=== PATIENT | female | born 1945 | race Caucasian/White ===

== ENCOUNTER → 2016-04-05 | Outpatient (REF) | payer MEDICARE, OTHER | LOC: M SMT 13:09 | PROVIDERS: ATTEND Nurse Practitioner Family | DX: N39.41 Urge incontinence (principal) | CPT/HCPCS: 51798; 81001; 87086; G0463 ==

== ENCOUNTER → 2016-09-01 | Outpatient (CLI) | payer MEDICARE, OTHER ==
[~2016-09-01] MED LIST: LOMO2.5T PO; LOSA100T36 PO; MAGN1TAB25 PO; MULT1CHW39 PO; OMEP40CA2 PO; OXYB10TA PO; SIMV20TA2 PO; SYNT25TA PO; VITA-5 PO; VITA500C14 PO
[2016-09-01 08:20] LABS: ANION GAP 9 MEQ/L (8-16); BLOOD UREA NITROGEN 20 MG/DL (7-18); CARBON DIOXIDE LEVEL 27 MEQ/L (21-32); CHLORIDE LEVEL 109 MEQ/L (98-107); CREATININE FOR GFR 0.96 MG/DL (0.55-1.02); GLOMERULAR FILTRATION RATE > 60.0 (>39); GLUCOSE, FASTING 104 MG/DL (83-110); POTASSIUM SERUM 4.6 MEQ/L (3.5-5.1); SODIUM LEVEL 145 MEQ/L (136-145)
--- NOTE | 2016-09-01 13:02 | ECGEPIP ---
Stationary ECG Study [facility] Test Date: 2016-09-01 Pat Name: ANUM HARRIS Department: Room: - Gender: F Battery Inspector: RF : 1945 Requested By: KASSANDRA Salamanca Order Number: [id number] Reading MD: Rubio Guillen Measurements Intervals [place] Rate: 71 P: 60 HI: 175 QRS: 16 QRSD: 95 T: 49 QT: 382 QTc: 416 Interpretive Statements SINUS RHYTHM Comparison tracing not on file Electronically Signed On 09-01-2016 13:02:44 EDT by Rubio Guillen
== END ==
LOC: M LAB 07:16
PROVIDERS: ATTEND Ophthalmology
DX: H25.12 Age-related nuclear cataract, left eye (principal)

== ENCOUNTER → 2016-09-15 | Day surgery (SDC) | payer OTHER, MEDICARE ==
--- NOTE | 2016-09-07 11:31 | CR ---
DATE OF CONSULTATION: 09/06/[address] Byrd: Thank you for asking me to see Ms. Lori Adamson in consultation prior to her cataract extractions. Ms. Adamson is, as you know, a 71-year-old female with past medical history of hypertension, hyperlipidemia, hyperglycemia, who reports that she has been in her usual state of health. The patient reports a decline in her vision. She is looking forward to having her cataracts extracted. The patient reports injury to her left great toe after dropping a picnic table it. 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 Tavera, but has not pursued treatment. Requesting evaluation to me. The patient has chronic headaches. She reports they are better than they had been and is pleased. The patient's weight is down. She believes this is related to portion control and is eating better. The patient has chronic diarrhea. Dr. Renee Gilbert had asked to lower her Lomotil to once a day. She reports that this was intolerable and she is back at twice a day. The patient has a osteoarthritis, degenerative joint disease. Sees s chiropractor every 3-4 weeks. Uses a Lidoderm patch daily. The patient has cognitive impairment but is still able to function. The patient had complained about oral burning and a bad taste in her mouth. She ultimately was placed on omeprazole with significant improvement in her symptoms with still variability in what tastes good to her. The patient otherwise denies any fevers or chills, chest pain or shortness of breath, nausea, vomiting, change in bowels. Patient reports chiropractor feels that she has right hip bursitis. She is requesting for the further eval treatment. The patient continues to have lower extremity dermatitis. She denies any pain or itching with it. It is more cosmetic. It is improved with the use of topical clobetasol but recurred and she has been referred into dermatology and will see them in September. PAST MEDICAL HISTORY: 1. Chronic daily headaches felt to be related to medication overuse by [facility] 2011. 2. Hypertension. 3. Hyperlipidemia. 4. Hyperglycemia. 5. Hematuria with negative workup 1998. 6. Total abdominal hysterectomy, bilateral salpingo-oophorectomy (SIM-BSO). 7. Cholecystectomy. 8. Osteoarthritis, degenerative joint disease status post total knee arthroplasty (TKA). 9. Depression. 10. Left shoulder impingement syndrome status post surgery. 11. Bladder suspension 06/04. 12. G3, P3. 13. 07/17/2009 right foot surgery. 14. Gout. 15. Possible myeloproliferative disorder. 16. Left shoulder rotator cuff tear 2011. 17. Heel spur status post surgical intervention. 18. Mild cognitive impairment 2011. 19. Hypothyroidism. 20. Left thumb arthroplasty 2014. 21. Colonoscopy October 2010. 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 She is a former smoker but quit in 1985. She occasionally consumes alcohol. FAMILY HISTORY: She is adopted. Her daughter does have diabetes. DRUG ALLERGIES: CODEINE. DRUG INTOLERANCES: PROPRANOLOL, GABAPENTIN, IMITREX, RELPAX, ULTRACET. PHYSICAL EXAMINATION: Obese female in no acute distress. Vital signs: Weight 190 with a BMI of 35, O2 sat at rest is 98%, blood pressure 146/74, recheck 140/80. Her heart rate of 67. HEENT: Head is normocephalic. Neck is supple. Pupils equal, reactive to light. Extraocular movements are intact. She wears eyeglasses. Conjunctivae are not injected. Sclerae anicteric. Vision grossly normal. No cervical lymphadenopathy. Posterior pharynx without inflammation. Neck is supple. No thyromegaly, jugular venous distention (JVD) or carotid bruits. Respiratory: Clear to auscultation, resonant to percussion. Cardiovascular: Regular rate rhythm. No murmur, rub or gallop. Abdomen: Obese, soft, nontender. Extremities: Trace pretibial edema with what appears to be a flat erythematous macular, slightly scaling rash pretibial. The patient does have a well-healed right TKA scar. Her pulses are palpable. Sensation is normal. Dermatologic she has multiple moles. Her last great toenail is dark in color. LABORATORY DATA 09/01/2016. She has a normal med profile. From 06/20/2016 she has a normal CBC. From 06/17/2016 she has a normal thyroid and vitamin D and lipid. Patient's EKG done at [facility] 09/01/2016 showed normal sinus rhythm rate of 71, axis of 16 degrees normal GA, QRS, QTC interval. No atrial or ventricular hypertrophy. No pathologic Q-waves. Nonspecific ST-T wave changes. IMPRESSION: Ms. Lori Adamson, 71-year-old female with multiple cardiovascular risk factors including age, hypertension, hyperlipidemia, hyperglycemia, has no signs or symptoms indicative of cardiovascular ischemia and is felt to be at low risk for cardiovascular complications from the proposed surgical intervention which can be further minimized by the followin. Hypertension. Continue losartan perioperatively at bedtime prior to surgery. 2. Hyperlipidemia. Continue simvastatin perioperatively including at bedtime prior to surgery. 3. Hyperglycemia, Dietary advice was given. 4. Chronic daily headaches. Hold Excedrin migraine 1 week prior to surgery. Use Tylenol as needed with caffeinated beverage. 5. Gastroesophageal reflux disease. Continue omeprazole including morning of surgery. 6. Hypothyroidism. Continue Levoxyl including morning of surgery. 7. Irritable bowel syndrome with diarrhea. Continue sparing use of Lomotil including morning of surgery. 8. Nocturia. Continue oxybutynin at bedtime prior to surgery. 9. Chronic daily headaches. Tylenol only before surgical intervention. 10. Gout. No recurrence since being on losartan. 11. Dermatitis lower extremities. Await input from dermatology 12. Left great toe trauma. I have asked her to seek consultation with Dr. Tavrea regarding the subungual hematoma. 13. Osteoarthritis, degenerative joint disease, chronic, stable. Follows with chiropractor for possible right hip bursitis and I will refer her over to orthopedics. No non-steroidal anti-inflammatory drugs (NSAID) perioperatively. Thank you very much for this consultation. Please call with any questions or concerns. ADRIA
[~2016-09-15] VITALS: Ht 157.5 cm; Wt 86.2 kg
[~2016-09-15] MED LIST changes: +ACETAMINOPHEN TAB 650MG DOSE (2X325MG) As Ordered ONE; +ACETAMINOPHEN TAB 650MG DOSE (2X325MG) PO PRN; +ACETYLCHOLINE OPHTH SOLN 1% 2ML (MIOCHOL-E) As Ordered ONE; +BALANCED SALT IRRIGATION SOL 500ML GLASS BOTTLE (FOR OR EYE COMPOUND) As Ordered ONE; +BALANCED SALT IRRIGATION SOLUTION 500ML BAG (FOR OR EYE MACHINE) As Ordered ONE; +CEFUROXIME 1MG/0.1ML INTRACAMERAL INJ As Ordered ONE; +D5W/0.2% SODIUM CHLORIDE 250 ML IV ONE; +DUOVISC (0.50ML VISCOAT/0.55ML PROVISC) OPHTH KIT As Ordered ONE; +LIDOCAINE 0.75%/EPINEPHRINE 0.025% IN BSS 1ML SYR INTRACAMERAL (OR ONLY) As Ordered ONE; +LIDOCAINE 4% INJ 5 ML AMP As Ordered ONE; +LR 1,000 ML IV SCH; +MIDAZOLAM INJ 2 MG/2 ML VIAL (J2250) As Ordered ONE; +OFLOXACIN 0.3 % (OCUFLOX) OPTH SOL 5ML OS ONE; +PHENYLEPHRINE 2.5% OPHTH SOL 2ML OS ONE; +POVIDONE-IODINE 5% OPHTH PREP SOL 30ML As Ordered ONE; +PROPARACAINE 0.5% OPHTH SOL 15ML OS ONE; +TROPICAMIDE 1% OPHTH SOLN 2ML OS ONE; +fentaNYL 100 MCG/2 ML INJECTION (J3010) As Ordered ONE
[2016-09-15 15:35] VITALS: BP 163/78
--- NOTE | 2016-09-16 08:54 | RO ---
DATE OF PROCEDURE: 09/15/2016 PREOPERATIVE DIAGNOSIS: Visually significant nuclear sclerotic cataract, left eye. POSTOPERATIVE DIAGNOSIS: Visually significant nuclear sclerotic cataract, left eye. PROCEDURE: Cataract extraction with use of phacoemulsification, and placement of intraocular lens, AU00T0, 17.5, left eye. SURGEON: Tristin Byrd DO ROTARY DRILL OPERATOR: ANESTHESIA: Local with monitored anesthesia care (MAC). COMPLICATIONS: None. POSTOPERATIVE CONDITION: Stable. INDICATION FOR SURGERY: Blurred vision left eye affecting patient's activities of daily living. DESCRIPTION OF PROCEDURE: The patient was seen in the preoperative area and properly identified. The correct operative eye was identified and marked. Attention was turned to that eye. The patient received topical antibiotics in the preoperative area. The patient then received topical dilating drops consisting of Tropicamide and Phenylephrine. The patient was then transferred to the operating room. The correct side was re-identified. The patient received topical anesthetics and antibiotics on the surface of the eye. The eye was prepped and draped in a sterile fashion. The upper and lower eyelids were isolated with Tegaderm tape, and the lids were held open with an adjustable speculum. Using a sideport blade, a paracentesis incision was made. Intraocular preservative-free lidocaine was then injected into the anterior chamber. Viscoelastic was then injected into the anterior chamber through the paracentesis. Using a 2.6 mm sharp-tipped keratome, the anterior chamber was entered via a temporal clear corneal incision. A continuous curvilinear capsulorrhexis was created with the aid of a 26g cystotome and utrata forceps. Hydrodissection was performed with balanced salt solution (BSS) on a blunt cannula until the nucleus was freely mobile. The crystalline lens was phacoemulsified and aspirated. Additional cohesive viscoelastic was placed into the capsular bag to deepen it. AU00T0, 17.5 lens D was placed into the capsular bag and confirmed by visualizing the continuous curvilinear capsulorrhexis. Additional irrigation and aspiration was used to remove cortical material and remaining viscoelastic. The clear corneal incision was hydrated with BSS on a blunt cannula. The lens was well positioned. The incisions were then tested for leaks and found to be negative. The eye was then palpated for appropriate pressure and adjusted accordingly with BSS. The eyelid speculum was carefully removed. A shield was then secured over the eye. The patient tolerated the procedure well and was discharged to the recovery unit in a stable condition. ADRIA
== END | disposition home or self-care (01) ==
LOC: M SDC 12:20
PROVIDERS: ATTEND Ophthalmology
DX: H25.12 Age-related nuclear cataract, left eye (principal); I10 Essential (primary) hypertension; E78.5 Hyperlipidemia, unspecified; E03.9 Hypothyroidism, unspecified; Z79.899 Other long term (current) drug therapy
CPT/HCPCS: 66984; J2250; J3010

== ENCOUNTER 2016-12-29 06:29 | Day surgery (SDC) | payer MEDICARE, OTHER ==
--- NOTE | 2016-12-26 06:15 | CR ---
DATE OF CONSULTATION: 12/22/2016 DATE OF PLANNED SURGERY: 12/29/[address] Byrd, Thank you for asking me to see Ms. Lori Adamson in consultation prior to her cataract extraction. As you know, Ms. Adamson is a 71-year-old female with a past medical history of hypertension, hyperglycemia, hyperlipidemia who was been in her usual state of health except for a recent diagnosis of right patellar bursitis. The patient reports a week ago she woke up unable to walk. Her temperature was 102. She ended up in Urgent Care and was prescribed a brace and Naprosyn with near full resolution of her symptoms. The patient stopped Naproxen yesterday as she had been instructed to not take any NSAIDs prior to her cataract extraction and she has had no relapse. She has had difficulties with the right knee previously. She has been referred to Dr. Shah. She has not yet gotten an appointment. Patient has history of irritable bowel syndrome with diarrhea tendency. She has only needed one Lomotil a day at this point. She takes additional as needed. She follows with Dr. Estefani Gilbert. The patient has known history of gastroesophageal reflux disease. Dr. Gilbert has recently recommending weaning her off her omeprazole by having her take it every third day and then discontinue, but having it available to her on an as-needed basis. The patient reports that the dyspepsia has been controlled. Patient has history of gout. No recent flares. The patient has hyperglycemia, denies polyuria, polyphagia or polydipsia. She has successfully been losing weight. Patient has history of hypertension, denies any chest pain, palpitations, syncope or presyncope. The patient has some cognitive impairment, but not felt to be significant. Her significant other helps keep her on track. Review of systems otherwise negative. Denying any other new symptoms. PAST MEDICAL HISTORY: 1. Chronic daily headaches felt secondary to medication overuse, [facility] neurology 2011. 2. Hypertension. 3. Hyperlipidemia. 4. Hyperglycemia. 5. Hematuria. Negative workup 1998. 6. Total abdominal hysterectomy-bilateral salpingo-oophorectomy (SIM-BSO). 7. Status post cholecystectomy. 8. Osteoarthritis, degenerative joint disease (DJD). 9. Status post right total knee arthroplasty (TKA). 10. Depression. 11. Left shoulder impingement syndrome, status post surgery. 12. Bladder suspension 06/05/2011. 13. G3, P3. 14. Right foot surgery 2009. 15. Gout. 16. Possible myeloproliferative disorder. 17. Left rotator cuff tear 2011. 18. Heel spurs surgery, status post surgical intervention. 19. Mild cognitive impairment, 2011. 20. Hypothyroid. 21. Left thumb arthroplasty 2014. 22. Colonoscopy 2010. 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 She is a former smoker, quit in 1985. Occasionally consumes alcohol. FAMILY HISTORY: The patient is adopted. Her daughter has diabetes. PHYSICAL EXAMINATION: Obese female, no acute distress. VITAL SIGNS: Weight 183 with a body mass index (BMI) of 34, blood pressure 156/76, recheck 120/90. Her heart rate is 60. HEENT: Head is normocephalic. Neck is supple. Pupils equal, reactive to light. Extraocular movements intact. She wears eye glasses. Conjunctivae not injected. Sclerae anicteric. Vision grossly normal. No cervical lymphadenopathy, jugular venous distention (JVD), carotid bruits. She does wear bilateral hearing aids, which are removed. She does have an upper plate. Respiratory: Clear to auscultation, resonant to percussion. Cardiovascular: Regular rate and rhythm. No murmur, rub, gallop. Abdomen: Obese, soft, nontender. No hepatosplenomegaly. Extremities: Chronic venous stasis dermatitis, trace pretibial edema. Right TKA, right knee slightly more swollen than left, but no significant erythema. Dermatologic: Multiple moles. LABORATORY DATA: 12/22/2016, normal CBC, magnesium, TSH, med profile except a GFR 49 and sugar 116. EKG was done [facility] 09/01/2016 showing normal sinus rhythm, rate of 71, axis of 16 degrees, normal MO, QRS, QTc interval. No atrial or ventricular hypertrophy. No pathologic Q waves, nonspecific ST-T wave changes. IMPRESSION: Ms. Lori Adamson 71-year-old female with multiple cardiovascular risk factors including age, hypertension, hyperlipidemia, hyperglycemia, has no signs or symptoms indicative of cardiovascular ischemia and is felt to be at low risk for cardiovascular complications from the proposed surgical intervention, which can be further minimized by the followin. Hypertension. Take losartan as usual evening prior to surgery. 2. Hyperlipidemia. Take simvastatin as usual the evening prior to surgery. 3. Hyperglycemia. Dietary advice reinforced. 4. Chronic daily headaches. Hold Excedrin 1 week prior to surgery. Use Tylenol as needed. 5. Gastroesophageal reflux disease. Continue omeprazole including a.m. of surgery. 6. Hypothyroid. Continue Levoxyl including a.m. of surgery. 7. Irritable bowel syndrome (IBS) with diarrhea. Continue Lomotil including morning of surgery and as needed. 8. Lower extremity dermatitis. Encouraged compliance with compression stockings. 9. Osteoarthritis, degenerative joint disease. Recent right patella bursitis, clinically much improved after of course of naproxen. She will get her self scheduled with Dr. Shah, orthopedic surgeon in [place]. Thank you very much for this consultation. Please call with questions or concerns.
[~2016-12-29] VITALS: Ht 157.5 cm; Wt 85.7 kg
[~2016-12-29 06:29] MED LIST changes: -ACETAMINOPHEN TAB 650MG DOSE (2X325MG) As Ordered ONE; -ACETAMINOPHEN TAB 650MG DOSE (2X325MG) PO PRN; -BALANCED SALT IRRIGATION SOL 500ML GLASS BOTTLE (FOR OR EYE COMPOUND) As Ordered ONE; -D5W/0.2% SODIUM CHLORIDE 250 ML IV ONE; -LIDOCAINE 4% INJ 5 ML AMP As Ordered ONE; -LR 1,000 ML IV SCH; -MIDAZOLAM INJ 2 MG/2 ML VIAL (J2250) As Ordered ONE; -OFLOXACIN 0.3 % (OCUFLOX) OPTH SOL 5ML OS ONE; -PHENYLEPHRINE 2.5% OPHTH SOL 2ML OS ONE; -PROPARACAINE 0.5% OPHTH SOL 15ML OS ONE; -TROPICAMIDE 1% OPHTH SOLN 2ML OS ONE; -fentaNYL 100 MCG/2 ML INJECTION (J3010) As Ordered ONE
[2016-12-29] MEDS ORDERED: D5W/0.2% SODIUM CHLORIDE 250 ML IV ONE (06:45)
[2016-12-29] MEDS ORDERED: TROPICAMIDE 1% OPHTH SOLN 2ML OD ONE (07:00)
[2016-12-29] MEDS ORDERED: PROPARACAINE 0.5% OPHTH SOL 15ML OD ONE (07:00)
[2016-12-29] MEDS ORDERED: OFLOXACIN 0.3 % (OCUFLOX) OPTH SOL 5ML OD ONE (07:00)
[2016-12-29] MEDS ORDERED: PHENYLEPHRINE 2.5% OPHTH SOL 2ML OD ONE (07:00)
[2016-12-29] MEDS ORDERED: LR 500 ML IV ONE (07:15)
[2016-12-29] MEDS ORDERED: PROPARACAINE 0.5% OPHTH SOL 15ML As Ordered ONE (07:32)
[2016-12-29] MEDS ORDERED: ACETAMINOPHEN TAB 650MG DOSE (2X325MG) As Ordered ONE (08:07)
[2016-12-29] MEDS ORDERED: ONDANSETRON 4MG/2ML VIAL (J2405) IV PRN (08:15)
[2016-12-29] MEDS ORDERED: LR 1,000 ML IV SCH (08:15)
[2016-12-29] MEDS ORDERED: ACETAMINOPHEN TAB 650MG DOSE (2X325MG) PO PRN (08:15)
[2016-12-29] MEDS ORDERED: MIDAZOLAM INJ 2 MG/2 ML VIAL (J2250) As Ordered ONE (08:18)
[2016-12-29] MEDS ORDERED: fentaNYL 100 MCG/2 ML INJECTION (J3010) As Ordered ONE (08:18)
[2016-12-29 09:25] VITALS: BP 192/79
--- NOTE | 2016-12-30 10:53 | RO ---
DATE OF PROCEDURE: 12/29/2016 PREOPERATIVE DIAGNOSIS: Visually significant nuclear sclerotic cataract, Right eye. POSTOPERATIVE DIAGNOSIS: Visually significant nuclear sclerotic cataract, Right eye. PROCEDURE: Cataract extraction with use of phacoemulsification, and placement of intraocular lens, AU00T0, 18.0 D, Right eye. SURGEON: Tristin Byrd DO ORDER CHECKER PACKER PROCESSER: ANESTHESIA: Local with monitored anesthesia care (MAC). COMPLICATIONS: None. POSTOPERATIVE CONDITION: Stable. INDICATION FOR SURGERY: Blurred vision right eye affecting patient's activities of daily living. DESCRIPTION OF PROCEDURE: The patient was seen in the preoperative area and properly identified. The correct operative eye was identified and marked. Attention was turned to that eye. The patient received topical antibiotics in the preoperative area. The patient then received topical dilating drops consisting of Tropicamide and Phenylephrine. The patient was then transferred to the operating room. The correct side was re-identified. The patient received topical anesthetics and antibiotics on the surface of the eye. The eye was prepped and draped in a sterile fashion. The upper and lower eyelids were isolated with Tegaderm tape, and the lids were held open with an adjustable speculum. Using a sideport blade, a paracentesis incision was made. Intraocular preservative-free lidocaine was then injected into the anterior chamber. Viscoelastic was then injected into the anterior chamber through the paracentesis. Using a 2.4 mm sharp-tipped keratome, the anterior chamber was entered via a temporal clear corneal incision. A continuous curvilinear capsulorrhexis was created with the aid of a 26g cystotome and Utrata forceps. Hydrodissection was performed with balanced salt solution (BSS) on a blunt cannula until the nucleus was freely mobile. The crystalline lens was phacoemulsified and aspirated. Additional cohesive viscoelastic was placed into the capsular bag to deepen it. An AU00T0, 18.0 lens D was placed into the capsular bag and confirmed by visualizing the continuous curvilinear capsulorrhexis. Additional irrigation and aspiration was used to remove cortical material and remaining viscoelastic. The clear corneal incision was hydrated with BSS on a blunt cannula. The lens was well positioned. The incisions were then tested for leaks and found to be negative. The eye was then palpated for appropriate pressure and adjusted accordingly with BSS. The eyelid speculum was carefully removed. A shield was placed over the eye. The patient tolerated the procedure well and was discharged to the recovery unit in a stable condition. ADRIA
== END 2016-12-29 09:25 | disposition home or self-care (01) ==
LOC: M SDC 06:29
PROVIDERS: ATTEND Ophthalmology
DX: H25.11 Age-related nuclear cataract, right eye (principal); I10 Essential (primary) hypertension; E78.5 Hyperlipidemia, unspecified; E03.9 Hypothyroidism, unspecified; K21.9 Gastro-esophageal reflux disease without esophagitis; Z79.899 Other long term (current) drug therapy
CPT/HCPCS: 66984; J2250; J3010; V2632

== ENCOUNTER → 2017-05-02 | Outpatient (REF) | payer MEDICARE, OTHER ==
[2017-05-03 18:40] LABS: VITAMIN B12 LEVEL > 2000 PG/ML (247-911)
== END ==
LOC: M LAB REF 16:38
DX: R20.2 Paresthesia of skin (principal)
CPT/HCPCS: 82607

== ENCOUNTER → 2017-05-18 | Outpatient (REF) | payer MEDICARE, OTHER ==
[2017-05-18 14:18] LABS: BASO # 0.1 10^3/uL (0.0-0.2); BASO % 0.8 % (0.0-1.0); EOS # 0.1 10^3/uL (0.0-0.50); EOS % 2.1 % (0.0-3.0); ESTIMATED AVERAGE GLUCOSE 114 MG/DL (60-110); HEMATOCRIT 42.7 % (36.0-47.0); HEMOGLOBIN A1c 5.6 %; IMMATURE GRANULOCYTE % 0.3 % (0-3.0); LYMPH # 1.8 10^3/uL (1.5-4.5); LYMPH % 29.3 % (24.0-44.0); MEAN CORPUSCULAR HEMOGLOBIN 29.2 pg (27.0-33.0); MEAN CORPUSCULAR HGB CONC 32.8 g/dl (32.0-36.5); MEAN CORPUSCULAR VOLUME 89.1 fl (80.0-96.0); MONO # 0.7 10^3/uL (0.0-0.8); MONO % 11.9 % (0.0-5.0); NEUTROPHILS # 3.4 10^3/uL (1.8-7.7); NEUTROPHILS % 55.6 % (36.0-66.0); PLATELET COUNT, AUTOMATED 189 10^3/uL (150-450); RED BLOOD COUNT 4.79 10^6/uL (4.00-5.40); WHITE BLOOD COUNT 6.1 10^3/uL (4.0-10.0)
[2017-05-18 14:25] LABS: ALBUMIN 4.2 GM/DL (3.2-5.2); ALBUMIN/GLOBULIN RATIO 1.14 (1.00-1.93); ALKALINE PHOSPHATASE 44 U/L (45-117); ALT/SGPT 25 U/L (12-78); ANION GAP 7 MEQ/L (8-16); AST/SGOT 21 U/L (7-37); BILIRUBIN,TOTAL 0.6 MG/DL (0.2-1.0); BLOOD UREA NITROGEN 19 MG/DL (7-18); CALCIUM LEVEL 9.3 MG/DL (8.8-10.2); CARBON DIOXIDE LEVEL 29 MEQ/L (21-32); CHLORIDE LEVEL 106 MEQ/L (98-107); CREATININE FOR GFR 0.97 MG/DL (0.55-1.30); FOLATE > 24.0 NG/ML (>5.4); GLOMERULAR FILTRATION RATE > 60.0 (>39); GLUCOSE, FASTING 97 MG/DL (70-100); POTASSIUM SERUM 4.2 MEQ/L (3.5-5.1); RHEUMATOID FACTOR QUANT < 10.0 IU/ML (0-15.0); SODIUM LEVEL 142 MEQ/L (136-145); TOTAL PROTEIN 7.9 GM/DL (6.4-8.2); VITAMIN B12 LEVEL > 2000 PG/ML (247-911)
[2017-05-18 15:29] LABS: ERYTHROCYTE SEDIMENTATION RATE 23 mm/hr (0-30)
[2017-05-22 08:44] LABS: ANTI DOUBLE STRAND-DNA AB <1 IU/mL (0-9); ANTINUCLEAR ANTIBODIES DIRECT Negative (Negative); SJOGREN'S ANTI SS-A <0.2 AI (0.0-0.9); SJOGREN'S ANTI SS-B <0.2 AI (0.0-0.9); VITAMIN B1 LEVEL WHOLE BLOOD 139.3 nmol/L (66.5-200.0); VITAMIN B6,PYRIDOXAL PHOSPHATE 47.6 ug/L (2.0-32.8); VITAMIN E LEVEL 15.6 mg/L (6.5-21.5)
[2017-05-23 10:34] LABS: ALBUMIN 4.46 GM/DL (3.29-5.55); ALBUMIN % 56.4 % (55.8-66.1); ALPHA-1-GLOBULIN % 4.2 % (2.9-4.9); ALPHA-1-GLOBULINS 0.33 GM/DL (0.17-0.41); ALPHA-2-GLOBULINS 1.01 GM/DL (0.42-0.99); ALPHA-2-GLOBULINS % 12.8 % (7.1-11.8); BETA-1-GLOBULINS 0.49 GM/DL (0.28-0.60); BETA-1-GLOBULINS % 6.2 % (4.7-7.2); BETA-2-GLOBULINS % 7.6 % (3.2-6.5); DRVV SCREEN 44.7 SEC; GAMMA GLOBULIN % 12.8 % (11.1-18.8)
[2017-05-23 10:35] LABS: GAMMA GLOBULINS 1.01 GM/DL (0.65-1.58)
== END ==
LOC: M LABNEURO 10:30
DX: G62.9 Polyneuropathy, unspecified (principal); R51 Headache
CPT/HCPCS: 82746

== ENCOUNTER 2018-03-12 07:31 | Emergency (ER) | payer MEDICARE, OTHER ==
[2018-03-12] MEDS: ACETAMINOPHEN TAB 650MG DOSE (2X325MG) PO (08:22)
[2018-03-12 08:44] LABS: BASO % 0.4 % (0.0-1.0); EOS # 0.1 10^3/uL (0.0-0.50); HEMATOCRIT 40.6 % (36.0-47.0); HEMOGLOBIN 13.5 g/dl (12.0-15.5); IMMATURE GRANULOCYTE % 0.7 % (0-3.0); LYMPH # 1.9 10^3/uL (1.5-4.5); LYMPH % 18.8 % (24.0-44.0); MEAN CORPUSCULAR HEMOGLOBIN 31.2 pg (27.0-33.0); MEAN CORPUSCULAR HGB CONC 33.3 g/dl (32.0-36.5); MEAN CORPUSCULAR VOLUME 93.8 fl (80.0-96.0); MONO # 1.1 10^3/uL (0.0-0.8); MONO % 11.2 % (0.0-5.0); NEUTROPHILS # 6.9 10^3/uL (1.8-7.7); NEUTROPHILS % 67.9 % (36.0-66.0); PLATELET COUNT, AUTOMATED 174 10^3/uL (150-450); RED BLOOD COUNT 4.33 10^6/uL (4.00-5.40); RED CELL DISTRIBUTION WIDTH 12.3 % (11.5-14.5); WHITE BLOOD COUNT 10.1 10^3/uL (4.0-10.0)
[2018-03-12 09:24] LABS: ANION GAP 8 MEQ/L (8-16); BLOOD UREA NITROGEN 20 MG/DL (7-18); CALCIUM LEVEL 8.7 MG/DL (8.8-10.2); CARBON DIOXIDE LEVEL 27 MEQ/L (21-32); CHLORIDE LEVEL 107 MEQ/L (98-107); CK-MB VALUE MASS < 1.0 NG/ML (<3.6); CPK CREATINE PHOSPHOKINASE 85 U/L (26-192); CREATININE FOR GFR 0.99 MG/DL (0.55-1.30); GLOMERULAR FILTRATION RATE 58.7 (>39); GLUCOSE, FASTING 114 MG/DL (70-100); MB/CK RELATIVE INDEX 1.18 (< OR =4); POTASSIUM SERUM 3.6 MEQ/L (3.5-5.1); SODIUM LEVEL 142 MEQ/L (136-145); TROPONIN I < 0.02 NG/ML (< 0.10)
== END 2018-03-12 10:00 | disposition home or self-care (01) ==
LOC: M ED 07:31
DX: S93.402A Sprain of unspecified ligament of left ankle, initial encounter (principal); S80.01XA Contusion of right knee, initial encounter; W18.39XA Other fall on same level, initial encounter; Y92.018 Other place in single-family (private) house as the place of occurrence of the external cause; I45.19 Other right bundle-branch block; I10 Essential (primary) hypertension; E78.9 Disorder of lipoprotein metabolism, unspecified; F33.9 Major depressive disorder, recurrent, unspecified; K58.9 Irritable bowel syndrome, unspecified; K21.9 Gastro-esophageal reflux disease without esophagitis; M10.9 Gout, unspecified; Z79.899 Other long term (current) drug therapy; Z79.82 Long term (current) use of aspirin; Z88.5 Allergy status to narcotic agent; Z87.891 Personal history of nicotine dependence
CPT/HCPCS: 73564

== ENCOUNTER 2018-06-04 15:56 | Emergency (ER) | payer MEDICARE, OTHER ==
[~2018-06-04] VITALS: Ht 157.5 cm; Wt 79.5 kg
[~2018-06-04 15:56] MED LIST changes: -ACETYLCHOLINE OPHTH SOLN 1% 2ML (MIOCHOL-E) As Ordered ONE; +ASPI81TA85 PO; -BALANCED SALT IRRIGATION SOLUTION 500ML BAG (FOR OR EYE MACHINE) As Ordered ONE; -CEFUROXIME 1MG/0.1ML INTRACAMERAL INJ As Ordered ONE; -DUOVISC (0.50ML VISCOAT/0.55ML PROVISC) OPHTH KIT As Ordered ONE; -LIDOCAINE 0.75%/EPINEPHRINE 0.025% IN BSS 1ML SYR INTRACAMERAL (OR ONLY) As Ordered ONE; -LOSA100T36 PO; +LOSA100T50 PO; +LYRI75CA; +ORPH100T PO; -POVIDONE-IODINE 5% OPHTH PREP SOL 30ML As Ordered ONE; +PRESCAP PO
[2018-06-04] MEDS ORDERED: SERT25TA88 (16:07)
[2018-06-04] MEDS ORDERED: LEVO50TA5 (16:07)
--- NOTE | 2018-06-04 17:49 | REP ---
LEFT SHOULDER, TWO VIEWS: HISTORY: Injury. There is minimal irregularity of the head of the humerus. This may represent degenerative change or possibly a fracture. The glenohumeral joint space is normal in appearance. There is moderate narrowing of the acromioclavicular joint space with associated osteophyte formation. Calcification is present superior to the acromioclavicular joint space and lateral to the head of the humerus. This represents ligamentous or tendon calcification. Calcification is present superior to the head of the humerus. This represents ligamentous or tendon calcification or possibly chondrocalcinosis. IMPRESSION:1. There is slight irregularity of the head of the humerus. This may represent degenerative change or possibly a fracture. 2. Degenerative change as described above. Electronically Signed by Dimas Gonsales MD 06/04/2018 05:54 P
[2018-06-04] MEDS ORDERED: DICL75TA PO (18:39)
[2018-06-04 19:03] VITALS: BP 170/76
== END 2018-06-04 19:05 | disposition home or self-care (01) ==
LOC: M ED 15:56
DX: S43.402A Unspecified sprain of left shoulder joint, initial encounter (principal); S00.81XA Abrasion of other part of head, initial encounter; S01.511A Laceration without foreign body of lip, initial encounter; W22.8XXA Striking against or struck by other objects, initial encounter; Y92.89 Other specified places as the place of occurrence of the external cause; I10 Essential (primary) hypertension; E78.5 Hyperlipidemia, unspecified; E03.9 Hypothyroidism, unspecified; Z79.82 Long term (current) use of aspirin; Z88.5 Allergy status to narcotic agent

== ENCOUNTER → 2018-06-13 | Outpatient (REF) | payer MEDICARE, OTHER ==
[~2018-06-13] MED LIST changes: +DICL75TA PO; +LEVO50TA5; -MAGN1TAB25 PO; +MAGN1TAB26 PO; -MULT1CHW39 PO; +MULT200T7 PO; +SERT25TA88
[2018-06-13 18:20] LABS: APPEARANCE, URINE MANUAL HAZY (CLEAR); BILIRUBIN, URINE MANUAL NEGATIVE (NEGATIVE); BLOOD URINE MANUAL POSITIVE (NEGATIVE); COLOR, URINE MANUAL YELLOW (YELLOW); GLUCOSE, URINE (UA) MANUAL NEGATIVE (NEGATIVE); KETONE, URINE MANUAL NEGATIVE (NEGATIVE); LEUKOCYTE ESTERASE, URINE MAN POSITIVE (NEGATIVE); NITRITE, URINE MANUAL POSITIVE (NEGATIVE); PROTEIN, URINE MANUAL 1+ mg/dL (NEGATIVE); UROBILINOGEN, URINE MANUAL NORMAL (NORMAL)
[2018-06-13 18:24] LABS: BACTERIA, URINE LARGE AMOUNT; HYALINE CAST, URINE NONE SEEN /lpf (0-1); MUCUS, URINE SMALL AMOUNT (NEGATIVE); RBC, URINE 0-1 /hpf (0-3); SQUAMOUS EPITHELIAL CELL URINE MOD AMOUNT /hpf (SMALL AMT); WBC, URINE TNTC /hpf (0-3)
== END ==
LOC: M SMT 17:26
PROVIDERS: ATTEND Nurse Practitioner Women's Health
DX: R30.0 Dysuria (principal)
CPT/HCPCS: 81000; 87088; 87186; G0463

== ENCOUNTER → 2018-07-03 | Outpatient (REF) | payer MEDICARE, OTHER | LOC: M SMT 17:21 | PROVIDERS: ATTEND Nurse Practitioner Women's Health | DX: N39.0 Urinary tract infection, site not specified (principal) ==

== ENCOUNTER → 2019-06-07 | Outpatient (REF) | payer MEDICARE, OTHER ==
[~2019-06-07] MED LIST changes: -OMEP40CA2 PO; +OMEP40CA97 PO; -OXYB10TA PO; +OXYB10TA23 PO; +SERT25TA21; -SERT25TA88; -SIMV20TA2 PO; +SIMV20TA22 PO
== END ==
LOC: M LABDRAW1 15:58
PROVIDERS: ATTEND Physician Assistant Medical
DX: R51 Headache (principal)

== ENCOUNTER → 2019-12-08 | Outpatient (CLI) | payer MEDICARE, OTHER ==
[~2019-12-08] MED LIST changes: -ASPI81TA85 PO; +ASPI81TA86 PO
[2019-12-08 17:49] LABS: BASO % 0.5 % (0.0-1.0); EOS # 0.1 10^3/uL (0.0-0.5); EOS % 0.9 % (0.0-3.0); HEMATOCRIT 32.5 % (36.0-47.0); HEMOGLOBIN 10.7 g/dl (12.0-15.5); LYMPH # 1.7 10^3/uL (1.5-5.0); LYMPH % 22.5 % (24.0-44.0); MEAN CORPUSCULAR HEMOGLOBIN 30.2 pg (27.0-33.0); MEAN CORPUSCULAR HGB CONC 32.9 g/dl (32.0-36.5); MEAN CORPUSCULAR VOLUME 91.8 fl (80.0-96.0); MONO % 13.7 % (0.0-5.0); NEUTROPHILS # 4.7 10^3/uL (1.5-8.5); PLATELET COUNT, AUTOMATED 148 10^3/uL (150-450); RED BLOOD COUNT 3.54 10^6/uL (4.00-5.40); WHITE BLOOD COUNT 7.5 10^3/uL (4.0-10.0)
== END ==
LOC: M LAB 17:06
PROVIDERS: ATTEND Physician Assistant
DX: M25.50 Pain in unspecified joint (principal)

== ENCOUNTER → 2019-12-23 | Outpatient (REF) | payer MEDICARE, OTHER | LOC: M LAB REF 10:07 | PROVIDERS: ATTEND Internal Medicine | DX: R19.7 Diarrhea, unspecified (principal) ==

== ENCOUNTER → 2020-03-02 | Outpatient (CLI) | payer MEDICARE, OTHER ==
[~2020-03-02] MED LIST changes: +METO1TAB32 PO; +OMEP-218 PO; +OXYC1TAB23 PO; +PREG150C PO; +SERT-138 PO
== END ==
LOC: M LABSMTC 11:19
PROVIDERS: ATTEND Anesthesiology
DX: Z01.812 Encounter for preprocedural laboratory examination (principal); Z20.828 Contact with and (suspected) exposure to other viral communicable diseases

== ENCOUNTER 2020-03-03 06:17 | Day surgery (SDC) | payer MEDICARE, OTHER ==
[~2020-03-03] VITALS: Ht 160 cm; Wt 89.7 kg
[~2020-03-03 06:17] MED LIST changes: +LR 1,000 ML IV ONE; -METO1TAB32 PO; -OMEP-218 PO; -OXYC1TAB23 PO; -PREG150C PO; -SERT-138 PO; +ceFAZolin SOD 2 GM in IV 1 EA IV ONE
[2020-03-03] MEDS ORDERED: SERT-138 PO (06:41)
[2020-03-03] MEDS ORDERED: OMEP-218 PO (06:41)
[2020-03-03] MEDS ORDERED: METO1TAB32 PO (06:41)
[2020-03-03] MEDS ORDERED: PREG150C PO (06:41)
[2020-03-03] MEDS ORDERED: BACITRACIN OINTMENT 30GM TUBE As Ordered ONE (07:15)
[2020-03-03] MEDS ORDERED: LIDOCAINE 1% MDV 20ML VIAL As Ordered ONE (07:15)
[2020-03-03] MEDS ORDERED: propofoL 200 MG/20 ML VIAL As Ordered ONE (07:47)
[2020-03-03] MEDS ORDERED: LIDOCAINE 2% 100MG/5ML SDV (FOR ANES.) As Ordered ONE (07:47)
[2020-03-03] MEDS ORDERED: fentaNYL 100 MCG/2 ML INJECTION (J3010) As Ordered ONE (07:47)
[2020-03-03] MEDS ORDERED: dexameTHASONE 4 MG/ML 1ML VIAL (J1100 PER 1MG) As Ordered ONE (07:47)
[2020-03-03] MEDS ORDERED: MIDAZOLAM INJ 2MG/2ML VIAL (J2250 PER 1MG) As Ordered ONE (07:47)
[2020-03-03] MEDS ORDERED: ONDANSETRON 4MG/2ML VIAL As Ordered ONE (07:47)
[2020-03-03] MEDS ORDERED: ePHEDrine SULFATE 25 MG/5 ML(5MG/ML) SYRINGE As Ordered ONE ×2 (07:48→08:21)
[2020-03-03] MEDS ORDERED: LIDOCAINE 2% W/EPINEPHRINE 20ML VIAL **PRES FREE As Ordered ONE (07:51)
--- NOTE | 2020-03-03 08:59 | ROOPDOC ---
[facility] Report Of Operation Report of Operation DATE OF PROCEDURE: 03/03/20 PREPROCEDURE DIAGNOSES: Headache and left temporal pain POSTPROCEDURE DIAGNOSES: Same PROCEDURE: Left temporal artery biopsy SURGEON: Estefani Galloway MD ANESTHESIA: Local anesthesia and LMA INDICATION FOR PROCEDURE: This is a very pleasant 74-year-old patient with heada ches, left temporal pain, increased ESR and we were consulted to provide a left temporal artery biopsy. Risks benefits and alternatives were explained and the patient was agreeable to proceed. Informed consent was obtained. REPORT OF OPERATION: Patient was brought to the ER in stable condition. LMA anesthesia and antibiotics were administered without complication. We utilized an ultrasound to tawanna the temporal artery from the top of the left ear over the episcopalian. We then trimmed the hair over the predicted incision. This area was then prepped and draped in a sterile fashion. A timeout was performed. Local anesthesia was administered to the skin and subcutaneous tissue and an incision was made with the skin knife. This was carried down to subcutaneous tissue with Bovie cautery. We then carefully skeletonized the temporal artery proximally distally within the incision. Branches were clipped and/or tied and ligated. We then secured the proximal and distal and of the artery after skeletonizing 7 cm. We then divided the artery and sent this for pathology. We irrigated with saline and additional local anesthesia was administered. The deeper tissues were approximated with a running 4-0 Vicryl suture. The skin was closed with a running nylon suture. Bacitracin and Xeroform were placed over the incision. The patient was allowed to awaken from anesthesia. The patient was then taken to recovery in stable condition. ESTIMATED BLOOD LOSS: Approximately 5 mL. SPECIMEN: Left temporal artery sent for pathology COMPLICATIONS: None. PLAN: Okay to resume home diet and medications. Keep head elevated next 24 hours, try to sleep on several pillows or in a recliner. Okay to shower and use baby shampoo to wash her hair, but no styling products or heat styling until the incision is completely healed. Cover sutures with bacitracin daily. Sutures to come out in clinic in 1 week and at that time we will discuss the results of her biopsy. We appreciate the opportunity to participate in the care of this patient. ESTEFANI GALLOWAY MD Mar 03, 2020 08:59
[2020-03-03] MEDS ORDERED: OXYC1TAB23 PO (09:04)
--- NOTE | 2020-03-03 09:05 | ECGEPIP ---
[facility] Test Date: 2020-03-03 Pat Name: ANUM HARRIS Department: Room: - Gender: Female Babbitt Spinner: Angelica : 1945 Requested By: BRIGHT Bullock Order Number: [id number] Reading MD: Rubio Penny Measurements Intervals [place] Rate: 53 P: 48 AL: 197 QRS: -1 QRSD: 88 T: 51 QT: 397 QTc: 375 Interpretive Statements SINUS BRADYCARDIA rSr' in V1 (Possible RV conduction delay) Decreased heart rate compared with 03/12/2018. Electronically Signed on 03-03-2020 9:04:57 EST by Rubio Penny
[2020-03-03] MEDS ORDERED: METOCLOPRAMIDE INJ 10MG/2ML VIAL (J2765 PER 1) IV PRN (09:15)
[2020-03-03] MEDS ORDERED: ONDANSETRON 4MG/2ML VIAL IV PRN (09:15)
[2020-03-03] MEDS ORDERED: fentaNYL 100 MCG/2 ML INJECTION (J3010) IV PRN (09:15)
[2020-03-03] MEDS ORDERED: PERCOCET 5MG/325MG TAB PO PRN (09:15)
[2020-03-03] MEDS ORDERED: LR 1,000 ML IV SCH (09:15)
[2020-03-03 10:55] VITALS: BP 172/79
== END 2020-03-03 10:55 | disposition home or self-care (01) ==
LOC: M SDC 06:17
PROVIDERS: ATTEND Surgery Vascular Surgery
DX: R51.9 Headache, unspecified (principal); I10 Essential (primary) hypertension; E03.9 Hypothyroidism, unspecified; E78.00 Pure hypercholesterolemia, unspecified; M12.9 Arthropathy, unspecified; R32 Unspecified urinary incontinence; Z79.899 Other long term (current) drug therapy; Z87.891 Personal history of nicotine dependence; Z88.5 Allergy status to narcotic agent; Z90.710 Acquired absence of both cervix and uterus; Z96.651 Presence of right artificial knee joint
CPT/HCPCS: 37609; 88305; 93005; J0690; J1100; J2250; J2405; J3010

== ENCOUNTER → 2021-07-20 | Outpatient (REF) | payer MEDICARE, OTHER ==
[~2021-07-20] MED LIST changes: +LOSA100T45 PO; -LOSA100T50 PO; -LR 1,000 ML IV ONE; +METO1TAB32 PO; +OMEP-173 PO; +OMEP40CA4 PO; -OMEP40CA97 PO; +OXYC1TAB23 PO; +PREG150C PO; +SERT-138 PO; -ceFAZolin SOD 2 GM in IV 1 EA IV ONE
[2021-07-20 13:20] LABS: C REACTIVE PROTEIN QUANTITATIV 7.09 MG/DL (0.00-0.30); URIC ACID 7.3 MG/DL (2.6-6.0)
== END ==
LOC: M LAB REF 12:24
PROVIDERS: ATTEND Internal Medicine
DX: M10.9 Gout, unspecified (principal)

== ENCOUNTER → 2021-09-03 | Outpatient (REF) | payer MEDICARE, OTHER | LOC: M LAB REF 12:20 | PROVIDERS: ATTEND Internal Medicine | DX: M79.674 Pain in right toe(s) (principal); M10.9 Gout, unspecified ==

== ENCOUNTER → 2021-10-18 | Outpatient (REF) | payer MEDICARE, OTHER ==
[2021-10-18 17:42] LABS: C REACTIVE PROTEIN QUANTITATIV 0.92 MG/DL (0.00-0.30); URIC ACID 8.2 MG/DL (2.6-6.0)
== END ==
LOC: M LAB REF 14:36
PROVIDERS: ATTEND Internal Medicine
DX: M10.9 Gout, unspecified (principal)

== ENCOUNTER → 2022-01-12 | Outpatient (REF) | payer MEDICARE, OTHER | LOC: M LAB REF 16:19 | PROVIDERS: ATTEND Internal Medicine | DX: M10.9 Gout, unspecified (principal) ==

== ENCOUNTER → 2022-04-19 | Outpatient (REF) | payer MEDICARE, OTHER ==
[2022-04-19 18:52] LABS: ATYPICAL LYMPH 4 % (0-5); EOSINOPHILS 1 % (0-3); LYMPHOCYTES 20 % (16-44); METAMYELOCYTES 1 % (0-0); MONOCYTES 21 % (0-5); MYELOCYTES 1 % (0-0); NEUTROPHILS 50 % (28-66)
[2022-04-19 18:54] LABS: PLATELET ESTIMATE DECREASED (NORMAL)
== END ==
LOC: M LAB REF 16:35
PROVIDERS: ATTEND Internal Medicine
DX: D72.9 Disorder of white blood cells, unspecified (principal); D69.6 Thrombocytopenia, unspecified

== ENCOUNTER → 2022-04-27 | Outpatient (REF) | payer MEDICARE, OTHER ==
[2022-04-27 15:30] LABS: ATYPICAL LYMPH 4 % (0-5); BASOPHILS 1 % (0-1); EOSINOPHILS 3 % (0-3); LYMPHOCYTES 16 % (16-44); MONOCYTES 29 % (0-5); NEUTROPHILS 43 % (28-66)
[2022-04-27 15:32] LABS: PLATELET ESTIMATE DECREASED (NORMAL)
== END ==
LOC: M LAB REF 12:35
PROVIDERS: ATTEND Internal Medicine
DX: D72.9 Disorder of white blood cells, unspecified (principal); D69.6 Thrombocytopenia, unspecified; G31.84 Mild cognitive impairment of uncertain or unknown etiology; F32.89 Other specified depressive episodes

== ENCOUNTER → 2022-05-26 | Outpatient (REF) | payer MEDICARE, OTHER ==
[2022-05-26 17:50] LABS: PERCENT SATURATION 26.6 % (13.2-45.0)
[2022-05-26 17:52] LABS: FERRITIN 55.2 NG/ML (7.3-270.7)
== END ==
LOC: M LAB REF 16:15
PROVIDERS: ATTEND Internal Medicine
DX: D64.9 Anemia, unspecified (principal)

== ENCOUNTER → 2022-10-04 | Outpatient (CLI) | payer MEDICARE, OTHER ==
[~2022-10-04] MED LIST changes: -LOSA100T45 PO; +LOSA100T46 PO; -ORPH100T PO; +ORPH1TAB6 PO
[2022-10-04 17:33] LABS: BASO # 0.1 10^3/uL (0.0-0.2); BASO % 0.8 % (0.0-1.0); EOS # 0.1 10^3/uL (0.0-0.5); EOS % 1.6 % (0.0-3.0); HEMATOCRIT 40.6 % (36.0-47.0); HEMOGLOBIN 13.1 g/dl (12.0-15.5); LYMPH # 1.6 10^3/uL (1.5-5.0); LYMPH % 22.9 % (24.0-44.0); MEAN CORPUSCULAR HEMOGLOBIN 27.9 pg (27.0-33.0); MEAN CORPUSCULAR HGB CONC 32.3 g/dl (32.0-36.5); MEAN CORPUSCULAR VOLUME 86.4 fl (80.0-96.0); MONO # 0.8 10^3/uL (0.0-0.8); MONO % 11.5 % (2.0-8.0); NEUTROPHILS # 4.4 10^3/uL (1.5-8.5); NEUTROPHILS % 62.8 % (36.0-66.0); PLATELET COUNT, AUTOMATED 176 10^3/uL (150-450); WHITE BLOOD COUNT 7.1 10^3/uL (4.0-10.0)
[2022-10-04 20:02] LABS: ERYTHROCYTE SEDIMENTATION RATE 49 mm/hr (0-30)
== END ==
LOC: M LAB 16:28
PROVIDERS: ATTEND Optometrist
DX: I77.6 Arteritis, unspecified (principal)

== ENCOUNTER → 2023-03-02 | Outpatient (CLI) | payer MEDICARE, OTHER ==
[~2023-03-02] MED LIST changes: -PREG150C PO; +PREG150C2 PO
== END ==
LOC: M WUC 14:29
PROVIDERS: ATTEND Internal Medicine
DX: M54.50 Low back pain, unspecified (principal)

== ENCOUNTER → 2024-06-20 | Outpatient (CLI) | payer MEDICARE, OTHER ==
[~2024-06-20] MED LIST changes: -MULT200T7 PO; +MULT200T9 PO
== END ==
LOC: M RAD 16:30
PROVIDERS: ATTEND Physician Assistant
DX: G43.719 Chronic migraine without aura, intractable, without status migrainosus (principal)

== ENCOUNTER → 2024-08-02 | Outpatient (REF) | payer MEDICARE, OTHER | LOC: M LAB REF 13:35 | PROVIDERS: ATTEND Internal Medicine | DX: M10.9 Gout, unspecified (principal) ==

== ENCOUNTER → 2024-11-08 | Outpatient (REF) | payer MEDICARE, OTHER | LOC: M LAB REF 11:50 | PROVIDERS: ATTEND Internal Medicine | DX: M10.9 Gout, unspecified (principal) ==

== ENCOUNTER → 2025-02-05 | Outpatient (REF) | payer MEDICARE, OTHER | LOC: M LAB REF 14:30 | PROVIDERS: ATTEND Internal Medicine | DX: M10.9 Gout, unspecified (principal) ==